=== PATIENT | female | born 1960 | race Caucasian/White ===

== ENCOUNTER → 2017-02-01 | Outpatient (CLI) | payer OTHER ==
[~2017-02-01] MED LIST: ASPIRIN81 M1 PO; ASPIRIN81 MG PO; CALCIUM + D 6001 TA1 PO; FISH OIL 1,001000 MG PO; GLUCOSAMINE CHO PO; IRON1 TA1 PO; MILK THISTLE500 MG PO; MULTI-DAY VITAM1 TAB PO; PROBIOTIC1 EACH PO; VITAL-D RX TABL1 TAB PO
[2017-02-01 11:43] LABS: HEMATOCRIT 39.9 % (35.0-45.0); HEMOGLOBIN 12.8 gm/dL (12.0-16.0); MEAN CELL VOLUME 87.5 FL (83-96); MEAN CORPUSCULAR HEMOGLOBIN 28.2 PG (28-34); MEAN CORPUSCULAR HGB CONC 32.2 g/dL (30-36); RED BLOOD COUNT 4.56 X10e (3.90-5.30); RED CELL DISTRIBUTION WIDTH 13.7 % (11.0-15.5); WHITE BLOOD COUNT 8.1 X10e3 (4.0-10.5)
[2017-02-01 12:25] LABS: ALBUMIN SERUM 4.1 g/dL (3.5-5.0); BILIRUBIN,TOTAL 0.7 mg/dL (0.2-2.0); CALCIUM SERUM 9.6 mg/dL (8.4-10.2); CREATININE SERUM 0.6 mg/dL (0.6-1.4); GLOM FILT RATE Estimated 101.9 mL/min (>60); POTASSIUM 4.3 mmol/L (3.5-5.1); PROTEIN TOTAL SERUM 7.4 g/dL (6.0-8.3)
== END | disposition home or self-care (01) ==
LOC: CLAB 11:05
PROVIDERS: Nurse Practitioner
DX: K75.81 Nonalcoholic steatohepatitis (NASH) (principal); R74.8 Abnormal levels of other serum enzymes
CPT/HCPCS: 36415; 80053; 84443; 85027